=== PATIENT | female | born 1925 | race Caucasian/White ===

== ENCOUNTER 2016-11-14 21:45 | Emergency (ER) | payer MEDICARE, OTHER ==
[~2016-11-14] VITALS: Ht 167.6 cm; Wt 71.5 kg
[~2016-11-14 21:45] MED LIST: AMIT25TA20 PO; AMIT8CAP6 PO/GT; ASPI81 PO; CALC-197 PO; CARV3.125 PO; CEPH500C3 PO; CETI10CH PO; FISHOIL PO; FLUO20TA20 PO; GLUCCAP27 PO; IBUP100S PO; LASI20TA PO; OMEP20CA5 PO; PYRI50TA PO; RANI150C PO; REFR0.5D4 OU; SIMV40TA PO; SINE10100 PO; TAB-TAB PO; TYLE3 PO; UNKNOWN MEDS; VITA100C6 PO
[2016-11-14 22:10] VITALS: BP 123/90; PULSE 98; RESP 16; TEMP 98.2; O2SAT 94
[2016-11-14 22:15] VITALS: BP 149/73; PULSE 66; RESP 18
[2016-11-14 22:55] VITALS: BP 154/89; PULSE 94; RESP 20; O2SAT 98
--- NOTE | 2016-11-14 23:10 | PD ---
HPI Chief Complaint: Fall Time Seen by Provider: 22:42 Travel History International Travel<30 days: No Contact w/Intl Traveler<30days: No Traveled to known affect area: No History of Present Illness HPI The patient is an 89-year-old female that fell tonight at 8:30 PM and hit the back of her head. She did not lose consciousness. She did sustain a laceration on the back of her head. She also fell Wednesday and was seen at [facility] with CAT scans and her facial lacerations were repaired. She does not have a headache. She is not on anticoagulants. There's been no nausea or vomiting. Both times the fall was when she was trying to maneuver with her walker and lost balance. She will be denied the walker again according to the common-law . The patient's last tetanus shot was 2-3 years ago. 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 Opth Ointment (Artificial Tear Opth Ointment) 1 Oint Mag-Al Liq (Aluminum-Magnesium Hydroxide Liq) 200-200 Mg/5 Ml Liqd [mag] Melatonin 10 Mg Tab 10 Mg PO HS Nitrofurantoin Monohydrate Macrocrystals (Nitrofurantoin Monoh/Nitrofur Macro) 100 Mg Cap 50 Mg PO HS Ibuprofen 400 Mg Tab 400 Mg PO HS Glucosamine & Chondroitin Cap (Glucosam/Chondr/Collagn/Hyalur) 1 Each Capsule Simvastatin 20 Mg Tab 20 Mg PO HS Shakira Allergy (Fexofenadine HCl) 60 Mg Tab 60 Mg PO BID Acidophilus Probiotic (Probiotic Product) 1 Tab Tab B6 Natural (Pyridoxine HCl) 100 Mg Tab 100 Multi Vitamin Daily (Multiple Vitamin) 1 Tab Tab Prilosec (Omeprazole Magnesium) 20 Mg Tab HS Prilosec (Omeprazole Magnesium) 20 Mg Tab Citalopram (Citalopram Hydrobromide) 10 Mg Tab Unknown Dose PO HS Carvedilol 3.125 Mg Tab 3.125 Mg PO BID Acetaminophen-Codeine 300-30 mg Tab 1 Tab PO TID PRN Sinemet (Carbidopa-Levodopa) 25-100 Mg Tab 1 Tab PO Q8HR Preservision Areds (Multiple Vitamins W/ Minerals) 1 Tab 1 Tab PO BID NEB Calcium Citrate 250 Mg Tab 600 Mg PO BID NEB Review of Systems Except as stated in HPI: all other systems reviewed are Neg Physical Exam Narrative GENERAL: The patient is alert, oriented 3 in minimal apparent distress with her scalp injury. Her vital signs show blood pressure 123/90 and heart rate of 98 but are otherwise normal. The patient wants to go home. SKIN: Focused skin assessment warm/dry. There is a 4 cm scalp laceration on the occipital area. There is no associated bony deformity. HEAD: Atraumatic. Normocephalic. EYES: Pupils equal and round. No scleral icterus. No injection or drainage. ENT: No nasal bleeding or discharge. Mucous membranes pink and moist. The tympanic membranes are clear. NECK: Trachea midline. No JVD. No cervical spine tenderness or deformity is noted. CARDIOVASCULAR: Regular rate and rhythm. No murmur appreciated. RESPIRATORY: No accessory muscle use. Clear to auscultation. Breath sounds equal bilaterally. GASTROINTESTINAL: Abdomen soft, non-tender, nondistended. Hepatic and splenic margins not palpable. MUSCULOSKELETAL: No obvious deformities. No clubbing. No cyanosis. No edema. NEUROLOGICAL: Awake and alert. No obvious cranial nerve deficits. Motor grossly within normal limits. Normal speech. PSYCHIATRIC: Appropriate mood and affect; insight and judgment normal. Data Data Last Documented VS Vital Signs Date Time Temp Pulse Resp B/P Pulse Ox O2 Delivery O2 Flow Rate FiO2 11/14/16 22:20 92 20 94 Room Air 11/14/16 22:15 149/73 11/14/16 22:[address] Brain W/O Iv Contrast(Rout) (11/14/16 22:42) [facility] Medical Decision Making Medical Screen Exam Complete: Yes Emergency Medical Condition: Yes Medical Record Reviewed: Yes Interpretation(s) The CT brain shows no acute change. Differential Diagnosis Scalp contusion, scalp laceration, skull fracture, intracranial bleed Narrative Course The patient has a scalp laceration with scalp contusion. She does not have any skull fracture or intracranial bleed on CT. Procedures Procedure Narrative The patient skin around the laceration was cleaned with Betadine. It was also copiously irrigated with saline. The scalp laceration was stapled with 6 rossi. The patient tolerated the procedure fairly well. Diagnosis Primary Impression: Occipital scalp laceration Additional Impression: Contusion of occipital region of scalp Additional Instructions: As we discussed, the rossi come out in 2 weeks. If you have any problems please return to the emergency department for reevaluation. Disposition: 01 DISCHARGE HOME Condition: Stable Storm Plascencia MD November 14, 2016 23:10
[2016-11-14] MEDS ORDERED: SINE25TA PO (23:12)
[2016-11-14] MEDS ORDERED: OCUVTAB4 PO (23:12)
[2016-11-14] MEDS ORDERED: CALC250T PO (23:12)
--- NOTE | 2016-11-14 23:23 | RADHPO ---
EXAM DATE/TIME: 11/14/2016 22:58 [facility] COMPARISON: No previous studies available for comparison. INDICATIONS : Fell and hit head, posterior laceration. RADIATION DOSE: 63.17 CTDIvol (mGy) MEDICAL HISTORY : None SURGICAL HISTORY : None. ENCOUNTER: Initial ACUITY: 1 day PAIN SCALE: 4/10 LOCATION: Bilateral occipital TECHNIQUE: Multiple contiguous axial images were obtained of the head. Using automated exposure control and adj ustment of the mA and/or kV according to patient size, radiation dose was kept as low as reasonably a chievable to obtain optimal diagnostic quality images. FINDINGS: No intracranial mass, hemorrhage or shift and no hydrocephalus. No abnormal extra-axial fluid. No sig nificant change 2012 CONCLUSION: 1. No acute intracranial abnormalities. No acute bony abnormalities Pedro Lopes MD on November 14, 2016 at 23:19 Board Certified Radiologist. This report was verified electronically.
[2016-11-14] MEDS ORDERED: PRIL20TA2 ×2 (23:30)
[2016-11-14] MEDS ORDERED: CITA10TA4 PO (23:30)
[2016-11-14] MEDS ORDERED: CARV3.12 PO (23:30)
[2016-11-14] MEDS ORDERED: ACET300T2 PO (23:30)
[2016-11-14] MEDS ORDERED: TH GCAP (23:31)
[2016-11-14] MEDS ORDERED: CARB1DRO19 (23:31)
[2016-11-14] MEDS ORDERED: PROB1TAB4 (23:31)
[2016-11-14] MEDS ORDERED: SIMV20TA PO (23:31)
[2016-11-14] MEDS ORDERED: PYRI1TAB5 (23:31)
[2016-11-14] MEDS ORDERED: REFROIN (23:31)
[2016-11-14] MEDS ORDERED: ALUM5LIQ (23:31)
[2016-11-14] MEDS ORDERED: NITR100C4 PO (23:31)
[2016-11-14] MEDS ORDERED: MELA1TAB18 PO (23:31)
[2016-11-14] MEDS ORDERED: MULT1TAB46 (23:31)
[2016-11-14] MEDS ORDERED: IBUP400T20 PO (23:31)
[2016-11-14] MEDS ORDERED: [UNRECOGNIZED DRUG - OTHER] EACH EYE (23:31)
[2016-11-14] MEDS ORDERED: ALLE60TA PO (23:31)
[2016-11-14] MEDS ORDERED: mag (23:31)
[2016-11-15 00:34] VITALS: BP 120/88; PULSE 92; RESP 18; O2SAT 99
[2016-11-15] MEDS ORDERED: ACETAMINOPHEN 325 MG TAB PO ONE (01:00)
== END 2016-11-15 01:19 | disposition home or self-care (01) ==
LOC: PHED 21:45
DX: S01.01XA Laceration without foreign body of scalp, initial encounter (principal); E11.9 Type 2 diabetes mellitus without complications; S00.03XA Contusion of scalp, initial encounter; W18.39XA Other fall on same level, initial encounter; Z91.81 History of falling; Y93.01 Activity, walking, marching and hiking; Y92.9 Unspecified place or not applicable; Y99.9 Unspecified external cause status
CPT/HCPCS: 12002; 70450

== ENCOUNTER → 2017-01-05 | Outpatient (CLI) | payer MEDICARE, OTHER ==
[~2017-01-05] MED LIST changes: +ACET300T2 PO; +ALLE60TA PO; +ALUM5LIQ; -AMIT25TA20 PO; -AMIT8CAP6 PO/GT; -ASPI81 PO; -CALC-197 PO; +CALC250T PO; +CARB1DRO19; +CARV3.12 PO; -CARV3.125 PO; -CEPH500C3 PO; -CETI10CH PO; +CITA10TA4 PO; -FISHOIL PO; -FLUO20TA20 PO; -GLUCCAP27 PO; -IBUP100S PO; +IBUP400T20 PO; -LASI20TA PO; +MELA1TAB18 PO; +MULT1TAB46; +NITR100C4 PO; +OCUVTAB4 PO; -OMEP20CA5 PO; +PRIL20TA2; +PROB1TAB4; +PYRI1TAB5; -PYRI50TA PO; -RANI150C PO; -REFR0.5D4 OU; +REFROIN; +SIMV20TA PO; -SIMV40TA PO; -SINE10100 PO; +SINE25TA PO; -TAB-TAB PO; +TH GCAP; -TYLE3 PO; -UNKNOWN MEDS; -VITA100C6 PO; +[UNRECOGNIZED DRUG - OTHER] EACH EYE; +mag
[2017-01-05 12:45] LABS: AUTOMATED NEUTROPHIL # 4.7 TH/MM3 (1.8-7.7); BASOPHIL # 0.1 TH/MM3 (0-0.2); BASOPHIL % 0.7 % (0.0-2.0); EOSINOPHIL # 0.2 TH/MM3 (0-0.4); EOSINOPHIL % 2.1 % (0.0-4.0); HEMATOCRIT 36.8 % (35.0-46.0); HEMO FLAGS DIFF FINAL; LYMPH % 24.8 % (9.0-44.0); LYMPHOCYTE # 1.9 TH/MM3 (1.0-4.8); MEAN CELL VOLUME 92.4 FL (80.0-100.0); MEAN CORPUSCULAR HGB CONC 32.5 % (32.0-36.0); MONO % 9.9 % (0.0-8.0); NEUT % 62.5 % (16.0-70.0); PLATELET COUNT 357 TH/MM3 (150-450); RED BLOOD COUNT 3.98 MIL/MM3 (4.00-5.30); WHITE BLOOD COUNT 7.6 TH/MM3 (4.0-11.0)
[2017-01-05 13:12] LABS: ALT (GPT) 7 U/L (10-53); ANION GAP 8 MEQ/L (5-15); AST (GOT) 16 U/L (15-37); BICARBONATE 28.5 MEQ/L (21.0-32.0); BLOOD UREA NITROGEN 16 MG/DL (7-18); CHLORIDE 104 MEQ/L (98-107); GLOMERULAR FILTRATION RATE 86 ML/MIN (>89); GLUCOSE,FASTING 78 MG/DL (74-99); POTASSIUM 4.2 MEQ/L (3.5-5.1); SODIUM (NA) 140 MEQ/L (136-145)
[2017-01-05 13:14] LABS: ALKALINE PHOSPHATASE 65 U/L (45-117); HDL CHOLESTEROL 72.8 MG/DL (40.0-60.0); LDL CHOLESTEROL 15 MG/DL (0-99); TOTAL BILIRUBIN ADULT 0.3 MG/DL (0.2-1.0)
== END ==
LOC: PLAB 04-09 11:54
PROVIDERS: ATTEND Family Medicine
DX: E78.2 Mixed hyperlipidemia (principal)
CPT/HCPCS: 36415; 80053; 80061; 85025

== ENCOUNTER 2017-02-25 19:00 | Observation (INO) | payer MEDICARE, OTHER ==
[~2017-02-25] VITALS: Ht 165.1 cm; Wt 72.5 kg
[~2017-02-25 19:00] MED LIST changes: +CARB25TA9 PO; +NITR1CAP36 PO; +PROZ20CA11 PO; +TOBRAMYCIN/DEXAMETHASONE OPTH OINT 3.5 GM TUBE RIGHT EYE ONE
[2017-02-25] MEDS ORDERED: AMAN100T PO (20:31)
[2017-02-25] MEDS ORDERED: SINE50TA PO (20:31)
[2017-02-25] MEDS ORDERED: CALCTAB94 PO (20:31)
[2017-02-25] MEDS ORDERED: FAMOTIDINE 20 MG/2 ML VIAL ONE (20:59)
[2017-02-25] MEDS ORDERED: methylPREDNISolone SOD SUCC 40 MG/1 ML VIAL ONE (21:36)
[2017-02-25] MEDS ORDERED: BALANCED SALT SOLN OPHT IRRIG 15 ML BTL ONE (21:36)
[2017-02-26] MEDS ORDERED: GENTAMICIN SULFATE 80 MG/2 ML VIAL ONE (00:58)
--- NOTE | 2017-02-26 01:25 | PD.OP ---
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 She was put under general anesthesia. prepped and draped in the usual sterile fashion for ophthalmic surgery. A wire lid speculum was placed in the right eye. A 360 degree peritomy was done on the conjunctiva. A large scleral laceration was noted from the limbus going back to behind the superior oblique at 10 o'clock. The superior oblique muscle was detached to gain access. 6-0 nylon was used as a traction suture through the cornea. 8-0 interrupted nylon sutures were placed to close the sclera. The superior oblique muscle was reattached with 6-0 Vicryl suture. A calcified piece of sclera was sent to pathology. The suture would not calabrese the calcified sclera, so Tisseel glue was used to close the 2mm of calcified sclera. The eye was reinflated with BSS and found to be watertight. The conjunctiva was closed with 7-0 Vicryl suture. Gentamicin and Solumedrol was injected subconjunctivally at the end of the case. TobraDex ointment was placed on the eye, and it was patched and shielded shut. The patient was sent to PACU in stable condition. Aurora Goodwin MD Feb 26, 2017 01:25
--- NOTE | 2017-02-26 01:28 | HHI.PR ---
Subjective Remarks s/p ruptured globe repair of right eye. Pt admitted for Obs overnight. 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 Admitted for Obs overnight. Keep right eye patch in place. Pain control per primary team. Resume regular diet. Ok to discharge in am and followup at my office at 10am Wednesday. Aurora Goodwin MD Feb 26, 2017 01:28
[2017-02-26] MEDS ORDERED: MORPHINE SULFATE 4 MG/ML INJ ONE (01:58)
[2017-02-26] MEDS ORDERED: DO NOT ADM ANY ANTICOAGULANT DRUGS PRN (03:00)
[2017-02-26] MEDS ORDERED: LACTATED RINGER'S 1000 ML IV PRN (03:00)
[2017-02-26] MEDS ORDERED: CHLORHEXIDINE GLUCONATE 2 % 1 PACK (2 CLOTHS) TOPICAL PRN (03:00)
[2017-02-26] MEDS ORDERED: POVIDONE IODINE 5% (ANTISEPSIS KIT) 4 APPLICATIONS EACH NARE PRN (03:00)
[2017-02-26] MEDS ORDERED: INSULIN HUMAN REGULAR 1,000 UNITS/10 ML VIAL SQ PRN (03:00)
[2017-02-26] MEDS ORDERED: METOPROLOL TARTRATE 25 MG TAB PO PRN (03:00)
[2017-02-26] MEDS ORDERED: SODIUM CHLORID 0.9% 500 ML IV PRN (03:00)
[2017-02-26 04:00] VITALS: BP 167/92; PULSE 92; RESP 16; TEMP 96.1; O2SAT 94
[2017-02-26 08:00] VITALS: BP 137/87; PULSE 97; RESP 14; TEMP 96.6; O2SAT 92
--- NOTE | 2017-02-26 10:31 | HHI.DS ---
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 She is a patient of 's who [place] of the [place]. She states she had acute vision loss and pain in her right eye after the fall - vision was LP, IOP was 4. There was high suspicion for a ruptured globe so she was scheduled for an exploration and ruptured globe repair of her right eye that night. She was admitted for overnight Observation and was discharged in stable condition. She is to keep her right eye patch in place and to follow up at Dr. Goodwin's office on 02/26/17 at 11 am. PE at Discharge Right eye shield in place Pt Condition on Discharge: Good Discharge Disposition: Discharge Home Discharge Instructions DIET: Follow Instructions for: As Tolerated, No Restrictions Activities you can perform: Continue Bedrest Aurora Goodwin MD Feb 26, 2017 10:31
[2017-02-26] MEDS ORDERED: PRED1SUS6 RIGHT EYE (11:42)
[2017-02-26] MEDS ORDERED: VIGA0.5D RIGHT EYE (11:42)
--- NOTE | 2017-02-27 13:37 | EKG ---
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
[2017-03-18] MEDS ORDERED: PRED1SUS6 RIGHT EYE (13:25)
[2017-03-18] MEDS ORDERED: VIGA0.5D RIGHT EYE (13:25)
== END 2017-02-26 11:14 | disposition home or self-care (01) ==
LOC: HOR 19:00 → HPAC 02-26 01:55 → HOCA 02-26 03:01
PROVIDERS: ADMIT Ophthalmology; ATTEND Ophthalmology
DX: S05.21XA Ocular laceration and rupture with prolapse or loss of intraocular tissue, right eye, initial encounter (principal); R94.31 Abnormal electrocardiogram [ECG] [EKG]; W19.XXXA Unspecified fall, initial encounter
CPT/HCPCS: 00140; 65285; 88305; 93005; G0378; J1580; J2270; J2920